=== PATIENT | male | born 1970 | race Hispanic/Latino ===

== ENCOUNTER → 2024-09-16 09:20 | Outpatient (REF) | payer OTHER, SELFPAY ==
[2024-09-16 10:17] LABS: Urine Albumin Negative (Neg - Trace); Urine Bilirubin Negative (Negative); Urine Character Clear (Clear); Urine Color Yellow; Urine Glucose Negative (Negative); Urine Ketone Negative (Negative); Urine Leukocyte Negative (Negative); Urine Nitrite Negative (Negative); Urine Occult Blood Negative (Negative); Urine Urobilinogen Negative (Neg - 1+)
[2024-09-16 10:24] LABS: % Basophils 0.3 % (0-2); % Eosinophils 1.9 % (0-6); % Immature Granulocytes 0.2 % (0-0.5); % Lymphocytes 35.7 % (20.5-51.1); % Monocytes 6.5 % (1.7-9.3); % Neutrophils 55.4 % (42.2-75.2); Absolute Eosinophils 0.1 10^3/uL (0-0.7); Absolute Lymphocytes 2.1 10^3/uL (1.2-3.4); Absolute Monocytes 0.4 10^3/uL (0.1-0.6); Absolute Neutrophils 3.2 10^3/uL (1.4-6.5); Hematocrit 42.3 % (39.0-52.0); Hemoglobin 13.9 g/dL (13.0-18.0); Mean Corp Hgb Conc. 32.9 g/dL (33.0-37.0); Mean Corpuscular Hgb 29.9 pg (27.0-31.0); Nucleated Red Blood Cells % 0 % (-); Platelet Count 188 10^3/uL (130-400); Red Blood Cell Count 4.65 10^6/uL (4.70-6.10); Red Cell Dist. Width 13.6 % (11.5-14.5); Reticulocyte Count 1.3 % (0.4-2.8); White Blood Cell Count 5.8 10^3/uL (4.8-10.8)
[2024-09-16 10:53] LABS: Glycohemoglobin (HgbA1c) 5.8 % (4.0-5.6)
[2024-09-16 11:39] LABS: ALT (SGPT) 26 U/L (0-50); AST (SGOT) 28 U/L (17-59); Albumin 4.4 g/dl (3.5-5.0); Alkaline Phosphatase 68 U/L (38-126); Blood Urea Nitrogen 19 mg/dl (9-20); Calcium 9.3 mg/dl (8.4-10.2); Carbon Dioxide 30 mmol/L (22-30); Chloride 106 mmol/L (98-107); Glucose 94 mg/dl (70-99); HDL Cholesterol 60 mg/dl; LDL Cholesterol, Calculated 104 mg/dl; Potassium 4.5 mmol/L (3.5-5.1); Sodium 142 mmol/L (135-145); Total Bilirubin 1.4 mg/dl (0.2-1.3); Total Cholesterol 177 mg/dl (50-199); Total Protein 7.3 g/dl (6.3-8.2); Triglyceride 67 mg/dl (10-149); Very Low Density Lipoprotein 13 mg/dl (0-30); eGFR > 60.00
[2024-09-16 12:31] LABS: PSA, Total - Screen 1.56 ng/ml (0.0-4.0)
[2024-09-17 16:08] LABS: FIT-Fecal Occult Blood Interp Negative
== END ==
LOC: CLINIC 09:20
PROVIDERS: ATTENDING PHYSICIAN Internal Medicine
DX: Z13.1 Encounter for screening for diabetes mellitus (principal)
CPT/HCPCS: 36415; 80053; 80061; 81003; 83036; 83520; 85025; 85045; G0103

== ENCOUNTER 2025-02-14 16:41 | Emergency (ER) | payer SELFPAY ==
[2025-02-14 16:50] VITALS: BP 123/85
--- NOTE | 2025-02-14 18:32 | ED.GENMED ---
History of Present Illness
General
Chief Complaint: Musculo-Skeletal Complaint
Source: patient
Exam Limitations: none
Time Seen by Provider: 02/14/25 18:17
History of Present Illness
History of Present Illness:
Patient received vaccines multiple vaccines on January 25. He received vaccines to both upper arms. The left arm has done well. However the right arm is had ongoing pain. Pain has not resolved. He also complains of numbness of the thumb and
second digit. No weakness. No fever no redness at the site. Partial relief with NSAIDs. Denies chest pain shortness of breath fever or other complaints
Past History
Past History
ED Past Medical History: None
Review of Systems
Review of Systems
All Other Systems: Not applicable
Respiratory: Reports no symptoms
Cardiac: Reports no symptoms
Phy Exam
Physical Exam
Physical Exam:
GENERAL: Alert and oriented in no apparent distress
NECK: Supple. No swelling
CARDIAC: Regular rate and rhythm
LUNGS: No distress
NEUROLOGICAL: Alert and oriented , grossly non-focal. Analysis Tester normal. Interosseous intact. Flexion extension of the wrist intact. Subjective decrease sensation of the right 1st and 2nd digit.
SKIN: Warm and dry, no rash or lesion, no discoloration, skin intact.
MUSCULOSKELETAL: No edema,no deformity.Good color. No swelling to the arm. No erythema no warmth no induration or tenderness
PSYCH: Normal and appropriate interaction.
Course
Orders/Labs/Results
Orders:
Orders
02/14/25 18:37
Acetaminophen [Tylenol] 650 mg PO NOW STA
Ibuprofen [Motrin] 600 mg PO NOW STA
02/14/25 18:38
EKG [Electrocardiogram (*1)] Urgent
Reason for Study: Other
Other Reason for Exam: Right arm pain
EKG- Treatment ONCE
Vital Signs
Initial and Last Documented VS:
Initial Vital Signs
Temp Pulse Resp BP Pulse Ox
97 F 75 18 123/85 97
02/14/25 16:50 02/14/25 16:50 02/14/25 16:50 02/14/25 16:50 02/14/25 16:50
Last Documented Vital Signs
Temp Pulse Resp BP Pulse Ox
97 F 75 18 123/85 97
02/14/25 16:50 02/14/25 16:50 02/14/25 16:50 02/14/25 16:50 02/14/25 18:37
MDM/Problems Addressed
Differential Diagnosis Includes:
Patient with ongoing right deltoid pain with radiculopathy pain to the right 1st and 2nd digit since his vaccination January 25. This has been constant since that time. No chest pain no shortness of breath nothing to suspect a cardiac issue. Great
distal pulses and cap refill. Did not fear this is a vascular issue. No infectious issues. No warmth no erythema no fever chills. Highly suspect a nerve injury or possible brachial neuritis. Symptomatic treatment and follow-up
*Pulse Oximetry
SaO2: 97
Oxygen Mode of Delivery: Room air
Patient hypoxic: no (97)
*EKG
Interpreted by ED Provider?: Yes
Interpretation: abnormal
Comparison EKG: no comparison EKG present
Heart Rate: 69
Rate: normal
Rhythm: sinus
[place]: normal axis
Interval: normal interval
QRS Pattern: right bundle branch block (inc)
Ischemia: no ischemia
*Critical Care Note
Total Time (30-74mins, 75-104mins- exclusive of procedures): Not Applicable
ED Attending Note
-
Portions of this chart may have been created with voice recognition software.� Occasional wrong word or��sound alike� substitutions may have occurred due to the inherent limitations of voice recognition software.
Discharge Plan
Departure
Patient Disposition: Home (Routine Discharge)
Date of Disposition: 02/14/25
Time of Disposition: 18:34
Patient with high blood pressure during this ER visit?: Yes
Discharge Problem:
Persistent right arm pain, Nerve damage, Possible brachial neuritis
Instructions: BLOOD PRESSURE
Referrals:
[facility] [Outside] - Follow up in 5-7 days
Activity Restrictions/Additional Instructions:
Continue to try to use the right arm.
Advil Motrin or Aleve for pain
You can also add Tylenol
Return with increasing pain any redness swelling.
Also return immediately with any chest pain shortness of breath weakness in the arm etc.
Interventions
Interventions:
*Risk Screen - Suicide Last Done: 02/14/25 16:55
*General Assessment Last Done: 02/14/25 19:17
*Neglect/Abuse Screening Last Done: 02/14/25 16:55
*ED- Fall Risk Assessment Last Done: 02/14/25 19:17
*ED COVID-19 Vaccine History Last Done: 02/14/25 19:17
*Nursing Disposition Last Done: 02/14/25 19:18
ED-Musculoskeletal Assessment Last Done: 02/14/25 19:17
Discharge Date and Time
Discharge Date/Time: 02/14/25 19:18
Print Language: PORTUGUESE
[2025-02-14] MEDS: MOTRIN 600 MG PO (19:02)
[2025-02-14] MEDS: TYLENOL 650 MG PO (19:02)
== END 2025-02-14 19:18 | disposition home or self-care (01) ==
LOC: EMR 16:41
PROVIDERS: EMERGENCY PHYSICIAN Emergency Medicine; FAMILY PHYSICIAN Nurse Practitioner Psychiatric/Mental Health
DX: M79.601 Pain in right arm (principal); R20.0 Anesthesia of skin; I45.10 Unspecified right bundle-branch block
CPT/HCPCS: 99283; 93005